=== PATIENT | female | born 1980 | race Caucasian/White ===

== ENCOUNTER → 2025-02-04 14:01 | Outpatient (REF) | payer BC, SELFPAY | LOC: HWEVLT 14:01 | PROVIDERS: ATTENDING PHYSICIAN Radiology Vascular & Interventional Radiology | DX: I83.892 Varicose veins of left lower extremity with other complications (principal) | CPT/HCPCS: 93971 ==

== ENCOUNTER → 2025-04-08 08:08 | Outpatient (REF) | payer BC, SELFPAY | LOC: HWEVLT 08:08 | PROVIDERS: ATTENDING PHYSICIAN Radiology Vascular & Interventional Radiology | DX: I83.892 Varicose veins of left lower extremity with other complications (principal) | CPT/HCPCS: 36478; C1769 ==

== ENCOUNTER → 2025-04-21 12:16 | Outpatient (REF) | payer BC, SELFPAY | LOC: HWEVLT 12:16 | PROVIDERS: ATTENDING PHYSICIAN Radiology Diagnostic Radiology | DX: I83.892 Varicose veins of left lower extremity with other complications (principal) | CPT/HCPCS: 93971 ==